=== PATIENT | female | born 1960 | race Caucasian/White ===

== ENCOUNTER 2017-05-11 10:11 | Observation (INO) | payer BC ==
[~2017-05-11] VITALS: Ht 157.5 cm; Wt 100.1 kg
[~2017-05-11 10:11] MED LIST: ASCO500 PO; AZOR; Azor 5-20 MG T1 EACH PO; CHOL10002 PO; CIPR500 PO; COLAZAL PO; CONEST.3; CYAN1000 PO; Canasa1000 MG PR; Chlorthalidone25 MG PO; ESCI5; HYDACE10B PO; HYDMOR4 PO; INSDET100 SQ; INSDET100 SUBQ; INSLI100I SC; INVOKANA300 MG PO; IRON150C PO; KETO10 PO; LIVALO; LOSHYD; MESA400ER; MESA400ER PO; METF500 PO; OMEP20ER; OMEP20ER PO; ONDA8 PO; OXYACE5T PO; PERI4; PERI4 PO; POLY500 PO; POTCHL20ER PO; PRAM.125 PO; PRAV10; PRAV10 PO; PROZAC; Prilosec Otc20 MG PO; REPATHA SU140 MG/1 M SQ; RXOXYACE PO; RXPROM25 PO; TAMS.4ER PO; TOBR.3OPSO OP; TRAM50 PO; VENL25 PO; VIBRYD; VIIBRYD40 MG PO; ZIPSOR25 MG PO; [UNRECOGNIZED DRUG - OTHER]
[2017-05-11 10:45] LABS: BASOPHILS ABSOLUTE AUTO 0.03 K/mm3 (0.00-0.23); BASOPHILS PERCENT AUTO 0 % (0-2); EOSINOPHILS ABSOLUTE AUTO 0.33 K/mm3 (0.00-0.68); EOSINOPHILS PERCENT AUTO 4 % (0-6); Hematocrit 43.6 % (33.0-51.0); Hemoglobin 14.5 g/dL (11.5-16.0); IMMATURE GRAN ABSOLUTE AUTO 0.04 K/mm3 (0.00-0.10); IMMATURE GRAN PERCENT AUTO 0 % (0-1); LYMPHOCYTES ABSOLUTE AUTO 1.91 K/mm3 (0.84-5.20); LYMPHOCYTES PERCENT AUTO 20 % (21-46); MONOCYTES ABSOLUTE AUTO 0.48 K/mm3 (0.16-1.47); MONOCYTES PERCENT AUTO 5 % (4-13); Mean Corpuscular HGB 31.2 pg (26.0-34.0); Mean Corpuscular HGB Conc 33.3 g/dL (31.5-36.5); Mean Corpuscular Volume 94 fL (80-100); Mean Platelet Volume 9.3 fL (9.1-12.4); NEUTROPHILS ABSOLUTE AUTO 6.66 K/mm3 (1.96-9.15); NEUTROPHILS PERCENT AUTO 71 % (41-73); Platelet Count 279 K/mm3 (150-400); RDW Coefficient Variation 12.1 % (11.7-14.2); RDW Standard Deviation 42.2 fL (35.1-46.3); Red Blood Cell Count 4.65 M/mm3 (3.80-5.20); White Blood Cell Count 9.45 K/mm3 (4.00-11.30)
[2017-05-11 11:05] LABS: Alanine Aminotransfer (ALT/SGP 49 U/L (12-78); Albumin, Blood 3.8 g/dL (3.4-5.0); Albumin/Globulin Ratio 1.1 (0.8-1.8); Alk Phos 101 U/L (50-136); Anion Gap 6 mmol/L (6-16); Aspartate Aminotrans (AST/SGOT 37 U/L (12-37); Bilirubin, Total 0.5 mg/dL (0.1-1.0); Blood Urea Nitrogen 18 mg/dL (8-24); Bun/Creatinine Ratio 30.2 (12.0-20.0); CO2, Blood 30 mmol/L (21-32); Calcium, Blood 8.4 mg/dL (8.5-10.1); Chloride, Blood 104 mmol/L (98-108); Globulin, Blood 3.6 g/dL (2.2-4.0); Glomerular Filtration Rate >60 (60-); Glucose, Blood 177 mg/dL (70-99); Potassium, Blood 3.1 mmol/L (3.5-5.5); Sodium, Blood 140 mmol/L (136-145); Total Protein, Blood 7.4 g/dL (6.4-8.2); Troponin I <0.015 ng/mL (0.000-0.040)
[2017-05-11] MEDS ORDERED: Humalog100 UNIT/1 (11:56)
[2017-05-11] MEDS ORDERED: Diclofenac Pota50 MG PO (11:56)
[2017-05-11] MEDS ORDERED: EZET10 PO (13:36)
[2017-05-11 15:46] LABS: Source, Urine Voided
[2017-05-11 16:11] LABS: Appearance, Urine Clear (Clear); Bilirubin, Urine Neg (Neg); Blood, Urine 1+ (Neg); Color, Urine Yellow (P-Yellow); Glucose Qualitative, Urine 4+ (Neg); Ketones, Urine Neg (Neg); Leukocyte Esterase, Urine 2+ (Neg); Nitrite, Urine Neg (Neg); Protein, Urine Neg (Neg); Specific Gravity, Urine 1.005 (1.003-1.022); Urobilinogen, Urine NORM (Normal)
[2017-05-11 16:19] LABS: Bacteria Few /hpf; Squamous Epithelial Cells Few /hpf (Few)
[2017-05-12 03:17] LABS: Anion Gap 6 mmol/L (6-16); Blood Urea Nitrogen 19 mg/dL (8-24); Bun/Creatinine Ratio 26.4 (12.0-20.0); CO2, Blood 34 mmol/L (21-32); Calcium, Blood 8.7 mg/dL (8.5-10.1); Chloride, Blood 101 mmol/L (98-108); Creatinine, Blood 0.72 mg/dL (0.40-1.00); Glomerular Filtration Rate >60 (60-); Glucose, Blood 123 mg/dL (70-99); Potassium, Blood 3.1 mmol/L (3.5-5.5); Sodium, Blood 141 mmol/L (136-145)
[2017-05-12] MEDS ORDERED: OMEPRAZOLE MAGN20 MG PO (11:36)
[2017-05-12] MEDS ORDERED: K-Dur20 MEQ PO (11:38)
[2017-05-12] MEDS ORDERED: Carafate1 GM/10 ML PO (11:43)
[2017-05-12] MEDS ORDERED: Novolog Fl100 UNIT/1 SC (11:47)
== END 2017-05-12 12:26 | disposition home or self-care (01) ==
LOC: ER 10:11 → MEDS 10:12 → ENPENDDIS 05-12 11:10 → MEDS 05-12 12:26
PROVIDERS: Emergency Medicine; Family Medicine
DX: R07.9 Chest pain, unspecified (principal); E11.9 Type 2 diabetes mellitus without complications; I10 Essential (primary) hypertension; E78.5 Hyperlipidemia, unspecified; M79.7 Fibromyalgia; K58.9 Irritable bowel syndrome, unspecified; E78.00 Pure hypercholesterolemia, unspecified; K51.90 Ulcerative colitis, unspecified, without complications; Z87.442 Personal history of urinary calculi; Z90.49 Acquired absence of other specified parts of digestive tract; Z90.710 Acquired absence of both cervix and uterus; Z98.890 Other specified postprocedural states; Z98.51 Tubal ligation status; Z88.8 Allergy status to other drugs, medicaments and biological substances; Z79.4 Long term (current) use of insulin; Z79.899 Other long term (current) drug therapy; Z87.59 Personal history of other complications of pregnancy, childbirth and the puerperium
CPT/HCPCS: 36415; 71046; 80048; 80053; 81001; 82947; 84484; 85025; 87086; 93005; 93010; 93306; 99285; G0378; J1815; J1817

== ENCOUNTER → 2017-11-19 | Outpatient (CLI) | payer BC ==
[~2017-11-19] MED LIST changes: +Carafate1 GM/10 ML PO; +Diclofenac Pota50 MG PO; +EZET10 PO; +Humalog100 UNIT/1; +K-Dur20 MEQ PO; +Novolog Fl100 UNIT/1 SC; +OMEPRAZOLE MAGN20 MG PO
== END | disposition home or self-care (01) ==
LOC: LAB SHORT 09:34 → LAB EV 09:34
DX: N39.0 Urinary tract infection, site not specified (principal)
CPT/HCPCS: 87086

== ENCOUNTER → 2018-04-22 | Outpatient (CLI) | payer BC ==
[~2018-04-22] MED LIST changes: +Balsalazide Di750 MG PO; +CHLO25B PO; +CYAN500 PO; +FIBER500 MG PO; +Humalog100 UNIT/1 SC; +INSDET100 SC; +Mirapex0.25 MG PO; +Omeprazole20 M1 PO; +REPATHA SU140 MG/1 M SC; +VITAMIN D32000 UNI1 PO
[2018-04-24 15:08] LABS: HPV 16 Negative (Negative); HPV 18 Negative (Negative); HPV OTHER HR TYPES Negative (Negative)
== END | disposition home or self-care (01) ==
LOC: LAB 16:25 → LAB SHORT 16:25
PROVIDERS: Nurse Practitioner Women's Health
DX: Z12.72 Encounter for screening for malignant neoplasm of vagina (principal)
CPT/HCPCS: 87624; G0123

== ENCOUNTER → 2018-05-21 | Outpatient (CLI) | payer BC ==
[2018-05-21 18:05] LABS: Adenovirus F 40/41 Not Detected (NOT DETECT); Astrovirus Not Detected (NOT DETECT); Campylobacter Sp Not Detected (NOT DETECT); Cryptosporidium Not Detected (NOT DETECT); Cyclospora Cayetanensis Not Detected (NOT DETECT); E. Coli O157 Not Detected (NOT DETECT); Entamoeba Histolytica Not Detected (NOT DETECT); Enteroaggregative E. coli-EAEC Not Detected (NOT DETECT); Enteropathogenic E. coli-EPEC Not Detected (NOT DETECT); Enterotoxigenic E. coli-ETEC Not Detected (NOT DETECT); Giardia Lamblia Not Detected (NOT DETECT); Norovirus GI/GII Not Detected (NOT DETECT); Plesiomonas Shigelloides Not Detected (NOT DETECT); Rotavirus A Not Detected (NOT DETECT); Salmonella Sp Not Detected (NOT DETECT); Sapovirus Not Detected (NOT DETECT); Shiga Toxin-prod E. coli-STEC Not Detected (NOT DETECT); Shigella/Enteroin E. coli-EIEC Not Detected (NOT DETECT); Vibrio Cholerae Not Detected (NOT DETECT); Vibrio Sp Not Detected (NOT DETECT); Yersinia Enterocolitica Not Detected (NOT DETECT)
== END | disposition home or self-care (01) ==
LOC: LAB SHORT 08:49 → LAB 08:49 → LAB FUT 05-14 09:40
PROVIDERS: Internal Medicine Gastroenterology
DX: K51.30 Ulcerative (chronic) rectosigmoiditis without complications (principal); R19.7 Diarrhea, unspecified
CPT/HCPCS: 87507

== ENCOUNTER 2018-06-24 07:48 | Day surgery (SDC) | payer BC ==
[~2018-06-24] VITALS: Ht 162.6 cm; Wt 103.6 kg
== END 2018-06-24 10:12 | disposition home or self-care (01) ==
LOC: ORSCSDS 07:48
PROVIDERS: Internal Medicine Gastroenterology
PROC: 0DBL8ZX Excision of Transverse Colon, Via Natural or Artificial Opening Endoscopic, Diagnostic (ICD-10-PCS; principal; 2018-06-24 09:00)
PROC: 0DBE8ZX Excision of Large Intestine, Via Natural or Artificial Opening Endoscopic, Diagnostic (ICD-10-PCS; principal; 2018-06-24 09:00)
DX: R19.7 Diarrhea, unspecified (principal); K63.5 Polyp of colon; K52.89 Other specified noninfective gastroenteritis and colitis; I10 Essential (primary) hypertension; E11.9 Type 2 diabetes mellitus without complications; K21.9 Gastro-esophageal reflux disease without esophagitis; Z79.899 Other long term (current) drug therapy; Z79.4 Long term (current) use of insulin
CPT/HCPCS: 82947; 88305; J0330; J1980; J2405; J7120

== ENCOUNTER 2019-09-10 12:16 | Day surgery (SDC) | payer BC ==
[~2019-09-10] VITALS: Ht 162.6 cm; Wt 107.7 kg
[~2019-09-10 12:16] MED LIST changes: +BYDUREON P2 MG/0.65 SC; +ENTYVIO300 MG IV; +FLORAJEN460 MG PO; +FOLI400 PO
== END 2019-09-10 14:45 | disposition home or self-care (01) ==
LOC: ORSCSDS 12:16
PROVIDERS: Internal Medicine Gastroenterology
PROC: 0DBP8ZX Excision of Rectum, Via Natural or Artificial Opening Endoscopic, Diagnostic (ICD-10-PCS; principal; 2019-09-10 13:30)
PROC: 0DBE8ZX Excision of Large Intestine, Via Natural or Artificial Opening Endoscopic, Diagnostic (ICD-10-PCS; principal; 2019-09-10 13:30)
DX: K21.9 Gastro-esophageal reflux disease without esophagitis (principal); K51.30 Ulcerative (chronic) rectosigmoiditis without complications; E66.9 Obesity, unspecified; Z68.41 Body mass index [BMI] 40.0-44.9, adult; E11.9 Type 2 diabetes mellitus without complications; I10 Essential (primary) hypertension; F32.9 Major depressive disorder, single episode, unspecified; E78.5 Hyperlipidemia, unspecified; Z79.4 Long term (current) use of insulin; Z79.899 Other long term (current) drug therapy
CPT/HCPCS: 82947; J2704; J7120

== ENCOUNTER → 2019-12-22 | Outpatient (CLI) | payer BC | END | disposition home or self-care (01) | LOC: LAB SHORT 08:46 → PLD 08:46 | DX: D21.21 Benign neoplasm of connective and other soft tissue of right lower limb, including hip (principal); M79.671 Pain in right foot; M67.40 Ganglion, unspecified site | CPT/HCPCS: 88304 ==

== ENCOUNTER → 2020-05-03 | Outpatient (CLI) | payer BC ==
[2020-05-17 19:08] LABS: CALCIUM OXALATE 5.19 ratio (0.00-6.00); CALCIUM, URINE 13.3 mg/dL (Not Estab.); CALCIUM, URINE 172.9 mg/24 hr (100.0-300.0); CHLORIDE URINE 105 (110-250); CITRIC ACID (CITRATE) 566 mg/L (Not Estab.); CITRIC ACID(CITRATE) 736 mg/24 hr (320-1240); CREATININE, URINE 72.7 mg/dL (Not Estab.); CREATININE, URINE 945.1 mg/24 hr (800.0-1800.0); MAGNESIUM, URINE 5.2 mg/dL (Not Estab.); MONOSODIUM URATE 3.75 ratio (0.00-4.00); OSMOLALITY, URINE 506 (300-900); SODIUM, URINE 113 (39-258); SODIUM, URINE 87 mmol/L (Not Estab.); STRUVITE 0.03 ratio (0.00-1.00); URIC ACID 0.86 ratio (0.00-1.20); URINE VOLUME 1300 mL/24 hr (600-1600); URINE VOLUME (PRESERVATIVE) 1300 mL/24 hr (600-1600)
== END ==
LOC: LAB SHORT 07:30 → LAB 07:30
PROVIDERS: Urology Female Pelvic Medicine and Reconstructive Surgery
DX: N20.0 Calculus of kidney (principal); Z88.6 Allergy status to analgesic agent; Z88.8 Allergy status to other drugs, medicaments and biological substances
CPT/HCPCS: 81003; 81050; 82131; 82140; 82340; 82436; 82507; 82570; 83735; 83935; 83945; 84105; 84133; 84300; 84392; 84560

== ENCOUNTER → 2023-04-26 | Outpatient (CLI) | payer BC ==
[~2023-04-26] MED LIST changes: +ASCORBIC ACID500 MG; +ENTYVIO300 M1; +FARXIGA5 MG; +IRON18 MG; +OZEMPIC1 MG/0.72; +POTCIT10; +REPATHA SY140 MG/1 M; +VIIBRYD40 MG; +ZINC15
== END | disposition home or self-care (01) ==
LOC: LAB 14:35 → LAB SHORT 14:35
DX: N76.0 Acute vaginitis (principal)
CPT/HCPCS: 87070; 87106; 87205